=== PATIENT | female | born 1945 | race Caucasian/White ===

== ENCOUNTER 2017-04-18 18:21 | Emergency (ER) | payer SELFPAY ==
[~2017-04-18] VITALS: Ht 157.5 cm; Wt 67.0 kg
[2017-04-18 18:31] VITALS: TEMP 98.6
[2017-04-18] MEDS ORDERED: UNKNOWN BP MED (18:44)
[2017-04-18] MEDS ORDERED: [UNRECOGNIZED DRUG - REMARK] (18:44)
[2017-04-18 19:17] LABS: BASO # 0.1 (0.0-0.2); BASO % 0.9 % (0.0-2.0); EOS # 0.1 (0.0-0.7); EOS % 1.4 % (0-4.0); GRAN # 3.8 (1.4-6.5); GRAN % 59.3 % (42.2-75.2); LYMPH # 1.7 (1.2-3.4); LYMPH % 27.1 % (20.0-51.0); MEAN CELL VOLUME 86 fl (80.0-100.0); MEAN CORPUSCULAR HGB CONC 34 g/dl (33.0-37.0); MEAN PLATELET VOLUME 9.6 fl (7.4-10.4); MONO # 0.7 (0.1-0.6); MONO % 10.7 % (1.7-9.3); PLATELET COUNT 272 K/mm3 (130-400); REDCELL DISTRIBUTION WIDTH-CV 12.5 % (11.5-14.5); WHITE BLOOD COUNT 6.4 K/mm3 (4.8-10.8)
[2017-04-18 19:18] LABS: HEMATOCRIT 33.4 % (37.0-47.0); HEMOGLOBIN 11.3 g/dl (12.5-16.0); MEAN CORPUSCULAR HEMOGLOBIN 29 pg (27.0-31.0)
[2017-04-18 19:21] LABS: PROTHROMBIN TIME 10.8 SECONDS (9.7-12.8)
[2017-04-18 19:30] LABS: ADJUSTED CALCIUM 9.9 mg/dL (8.4-10.2); ALBUMIN 4.1 gm/dL (3.5-5.0); BILIRUBIN,TOTAL 0.7 mg/dL (0.0-1.0); CREATININE, serum 1.03 mg/dL (0.52-1.25); POTASSIUM 3.5 mmol/L (3.4-5.0); TOTAL PROTEIN 6.9 gm/dL (6.4-8.2)
[2017-04-18 21:45] VITALS: BP 148/84; PULSE 71
== END 2017-04-18 22:22 | disposition home or self-care (01) ==
LOC: COL.ER 18:21
PROVIDERS: Emergency Medicine
DX: S09.90XA Unspecified injury of head, initial encounter (principal); S92.414A Nondisplaced fracture of proximal phalanx of right great toe, initial encounter for closed fracture; S01.81XA Laceration without foreign body of other part of head, initial encounter; M25.532 Pain in left wrist; I10 Essential (primary) hypertension; Z98.890 Other specified postprocedural states; Z90.49 Acquired absence of other specified parts of digestive tract; W10.9XXA Fall (on) (from) unspecified stairs and steps, initial encounter; Y92.008 Other place in unspecified non-institutional (private) residence as the place of occurrence of the external cause

== ENCOUNTER 2017-04-25 08:20 | Emergency (ER) | payer SELFPAY ==
[~2017-04-25 08:20] MED LIST: UNKNOWN BP MED; [UNRECOGNIZED DRUG - REMARK]
[2017-04-25 08:29] VITALS: BP 194/70; PULSE 70; TEMP 97.8
== END 2017-04-25 08:50 | disposition home or self-care (01) ==
LOC: COL.ER 08:20
DX: Z48.02 Encounter for removal of sutures (principal)

== ENCOUNTER 2017-04-25 08:47 | Emergency (ER) | payer SELFPAY ==
[~2017-04-25] VITALS: Ht 157.5 cm; Wt 63.5 kg
[2017-04-25 08:49] VITALS: BP 150/61; TEMP 97.1
[2017-04-25 09:45] VITALS: PULSE 76
== END 2017-04-25 09:46 | disposition home or self-care (01) ==
LOC: COL.ER 08:47
DX: M54.6 Pain in thoracic spine (principal); R07.81 Pleurodynia; I10 Essential (primary) hypertension; Z79.01 Long term (current) use of anticoagulants; Z91.81 History of falling